=== PATIENT | male | born 1945 | race Hispanic/Latino ===

== ENCOUNTER 2017-06-10 07:12 | Day surgery (SDC) | payer OTHER ==
[~2017-06-10] VITALS: Ht 175.3 cm; Wt 114.2 kg
[~2017-06-10 07:12] MED LIST: ALLO300T2 PO; ASPI-1181 PO; ATOR20TA65 PO; LISI40TA4 PO; METF500T7 PO; METO-391 PO; SODIUM CHLORIDE 0.9% 1000ML 1,000 ML IV ONE; XALA2.5OS OU
[2017-06-10 07:25] VITALS: BP 138/64
[2017-06-10] MEDS ORDERED: PROPOFOL 10 MG/ML 20ML VIAL IV ONE (09:09)
[2017-06-10 09:29] VITALS: BP 89/54
== END 2017-06-10 10:00 | disposition home or self-care (01) ==
LOC: DAH 07:12
PROVIDERS: ATTEND Internal Medicine Gastroenterology
DX: Z12.11 Encounter for screening for malignant neoplasm of colon (principal); K57.30 Diverticulosis of large intestine without perforation or abscess without bleeding; Z86.010 Personal history of colon polyps; Z68.35 Body mass index [BMI] 35.0-35.9, adult; I10 Essential (primary) hypertension; E78.5 Hyperlipidemia, unspecified; G47.33 Obstructive sleep apnea (adult) (pediatric); M19.90 Unspecified osteoarthritis, unspecified site; E11.39 Type 2 diabetes mellitus with other diabetic ophthalmic complication; H40.9 Unspecified glaucoma; Z98.890 Other specified postprocedural states; Z79.899 Other long term (current) drug therapy; Z79.84 Long term (current) use of oral hypoglycemic drugs
CPT/HCPCS: 82948 ×2; 93005; G0105; J2704; J7030

== ENCOUNTER 2018-11-02 09:58 | Inpatient (IN) | payer OTHER | END 2018-11-04 18:17 | LOC: EDHIP 09:58 → 4AH 18:51 ==

== ENCOUNTER 2020-01-17 12:00 | Inpatient (IN) | payer OTHER ==
[~2020-01-17] VITALS: Ht 175.3 cm; Wt 117.4 kg
[2020-01-17 10:13] LABS: BASOPHILS % (AUTO) 0.5 % (0.0-5.0); EOSINOPHILS % (AUTO) 0.8 % (0.0-8.0); HEMATOCRIT 39.2 % (42-54); LYMPHOCYTES % (AUTO) 20.5 % (21.0-51.0); MEAN CORPUSCULAR HGB CONC 33.4 g/dL (32.0-36.0); MEAN CORPUSCULAR VOLUME 95.8 fL (79-99); MONOCYTES % (AUTO) 7.8 % (3.0-13.0); NEUTROPHILS % (AUTO) 69.5 % (40.0-77.0); PLATELET COUNT (AUTO) 244 K/uL (130-400); RED BLOOD CELL COUNT(AUTO) 4.09 MIL/uL (4.50-6.20); RED CELL DISTRIBUTION WIDTH 12.6 % (11.0-15.5)
[2020-01-17 10:26] LABS: BILIRUBIN,URINE Negative (NEGATIVE); COLOR,URINE Yellow (YELLOW); GLUCOSE, URINE (UA) Negative (NEGATIVE); KETONES,URINE Negative (NEGATIVE); LEUKOCYTE ESTERASE ,URINE Negative (NEGATIVE); NITRATE,URINE Negative (NEGATIVE); OCCULT BLOOD,URINE Negative (NEGATIVE); PROTEIN,URINE Negative (NEGATIVE); UROBILINOGEN,URINE 0.2 mg/dL (0.2-1.0)
[2020-01-17 10:30] LABS: APPEARANCE,URINE CLEAR (CLEAR)
[2020-01-17 10:33] LABS: POTASSIUM 4.9 mmol/L (3.5-5.1)
[2020-01-17 10:43] LABS: INR 0.94 (0.85-1.15); PROTHROMBIN TIME 10.2 SEC (9.6-11.6)
[~2020-01-17 12:00] MED LIST changes: +AMLO-257 PO; -ASPI-1181 PO; +ASPI-1443 PO; -LISI40TA4 PO; -METF500T7 PO; -METO-391 PO; -SODIUM CHLORIDE 0.9% 1000ML 1,000 ML IV ONE
[2020-01-23 13:01] VITALS: BP 150/80
[2020-01-23] MEDS ORDERED: ICOS0.5C PO (13:47)
[2020-01-23] MEDS ORDERED: VITAMIN D PO (13:47)
[2020-01-23] MEDS ORDERED: TELM80TA10 PO (13:47)
[2020-01-23] MEDS ORDERED: METF-444 PO (13:47)
[2020-01-23] MEDS ORDERED: GABA-529 PO (13:47)
[2020-01-23] MEDS ORDERED: VIT1CAPS5 PO (13:47)
[2020-01-23] MEDS ORDERED: CLON0.1T PO (13:51)
[2020-01-23] MEDS ORDERED: TURMERIC PO (13:51)
[2020-01-23] MEDS ORDERED: ZINC50TA64 PO (13:51)
[2020-01-23] MEDS ORDERED: UBID100C10 PO (13:51)
[2020-01-23] MEDS ORDERED: CIDE600C PO (13:51)
[2020-01-24] VITALS (25 sets, daily range): BP systolic 126–159; BP diastolic 65–85
[2020-01-24] MEDS: CEFAZOLIN SODIUM 1 GM VIAL IVP SCH ×2 (06:00→09:45)
[2020-01-24] MEDS ORDERED: SODIUM CHLORIDE 0.9% 1000ML 1,000 ML IV ONE (06:29)
--- NOTE | 2020-01-24 06:30 | NUR ---
preop pt arrived ambulatory in no distress for left knee surgery. pt oriented to room and call light. will continue to monitor pt
--- NOTE | 2020-01-24 07:10 | NUR ---
report dr curran informed pt on turmeric and c0 q10 no new orders given
[2020-01-24] MEDS ORDERED: ROCURONIUM 10MG/1ML SYR 10 MG/ML ML ONE (07:36)
[2020-01-24] MEDS ORDERED: KETAMINE 50MG/ML SYRINGE 50 MG/ML DISP.SYRIN IV ONE (07:36)
[2020-01-24] MEDS ORDERED: MIDAZOLAM HCL 1 MG/ML 2ML VIAL ONE (07:36)
[2020-01-24] MEDS ORDERED: SUCCINYLCHOLINE CHLORIDE 20 MG/ML 10 ML VIAL ONE (07:36)
[2020-01-24] MEDS ORDERED: PROPOFOL 10 MG/ML 20ML VIAL IV ONE (07:37)
[2020-01-24] MEDS ORDERED: LIDOCAINE PF 2% 5ML ABBOJECT ONE (07:37)
[2020-01-24] MEDS ORDERED: CEFAZOLIN SODIUM 1 GM VIAL ONE (07:42)
[2020-01-24] MEDS ORDERED: KETOROLAC TROMETHAMINE 30MG/ML ONE (08:19)
[2020-01-24] MEDS ORDERED: ACETAMINOPHEN EXTRA STRENGTH 500 MG TABLET ONE (08:19)
[2020-01-24] MEDS ORDERED: CELECOXIB 200 MG CAP ONE (08:20)
[2020-01-24] MEDS ORDERED: TRANEXAMIC ACID 1000MG/10ML ONE ×2 (08:26→12:12)
[2020-01-24] MEDS ORDERED: GLYCOPYRROLATE 1 MG/5 ML SYRINGE ONE (09:17)
[2020-01-24] MEDS ORDERED: DEXAMETHASONE SOD PHOSPHATE 10MG/ML 1ML VIAL ONE (09:21)
[2020-01-24] MEDS ORDERED: FENTANYL CITRATE PF 50 MCG/1 ML 2ML VIAL ONE (10:13)
[2020-01-24] MEDS ORDERED: CEFAZOLIN SODIUM 1 GM VIAL IRRIG ONE (10:20)
[2020-01-24] MEDS ORDERED: NEOSTIGMINE 5MG/5ML SYR IV ONE (11:27)
[2020-01-24] MEDS ORDERED: ONDANSETRON HCL 4 MG/2 ML VIAL ONE (11:28)
[2020-01-24] MEDS ORDERED: TRAMADOL HCL 50 MG TABLET PO PRN (11:45)
[2020-01-24] MEDS: ACETAMINOPHEN EXTRA STRENGTH 500 MG TABLET PO SCH ×2 (11:45→20:18)
[2020-01-24] MEDS ORDERED: ONDANSETRON HCL 4 MG/2 ML VIAL IVP PRN (11:45)
[2020-01-24] MEDS ORDERED: FERROUS FUMARATE 324 MG TABLET PO PRN (11:45)
[2020-01-24] MEDS ORDERED: KETOROLAC TROMETHAMINE 15MG/ML IV PRN (11:45)
[2020-01-24] MEDS: SODIUM CHLORIDE 0.9% 1000ML 1,000 ML IV SCH ×2 (11:45→21:45)
[2020-01-24] MEDS ORDERED: DiphenhydrAMINE HCL 50 MG/ML VIAL IVP PRN (11:45)
[2020-01-24] MEDS ORDERED: LIDOCAINE HCL-MPF 1% 2ML VIAL IV PRN (11:45)
[2020-01-24] MEDS ORDERED: POTASSIUM CHLORIDE 20MEQ/100ML 100 ML IV PRN (11:45)
[2020-01-24] MEDS ORDERED: TEMAZEPAM 15 MG CAPSULE PO PRN (11:45)
[2020-01-24] MEDS ORDERED: POTASSIUM CHLORIDE 10% ELIXIR 20 MEQ/15 ML UDCUP PO PRN (11:45)
[2020-01-24] MEDS ORDERED: POTASSIUM CHLORIDE 20 MEQ ERTAB PO PRN (11:45)
[2020-01-24] MEDS ORDERED: CALCIUM CARBONATE 500 MG TABLET PO PRN (11:45)
[2020-01-24] MEDS ORDERED: MEPERIDINE-PF 25 MG/ML SYG ONE ×2 (12:18→12:38)
[2020-01-24] MEDS: OXYCODONE HCL 5 MG TAB PO PRN ×2 (14:43→20:16)
[2020-01-24] MEDS: INSULIN HUMULIN R 100 UNIT/ML 3ML SQ SCH ×2 (16:30→21:00)
[2020-01-24] MEDS ORDERED: BENZOCAINE/MENTH/CETYLPYRD CL 1 EACH LOZENGE MM PRN (17:00)
[2020-01-24] MEDS: METFORMIN HCL 500 MG TABLET PO SCH (17:02)
[2020-01-24] MEDS: CEFAZOLIN 3GM /D5W 100ML 100 ML IV SCH (18:06)
[2020-01-24] MEDS: GABAPENTIN 100 MG CAPSULE PO SCH (20:16)
[2020-01-24] MEDS: CLONIDINE HCL 0.1 MG TABLET PO SCH (20:17)
[2020-01-24] MEDS: CELECOXIB 200 MG CAP PO SCH (20:17)
[2020-01-24] MEDS: LATANOPROST 2.5 ML DROPS OU SCH (20:18)
[2020-01-24] MEDS: FAMOTIDINE 20MG TAB 20 MG TAB PO SCH (20:18)
[2020-01-24] MEDS: ATORVASTATIN CALCIUM 20 MG TABLET PO SCH (20:18)
[2020-01-24] MEDS: FISH OIL 1000 MG/CAP PO SCH (20:18)
[2020-01-24] MEDS ORDERED: ASPIRIN 81MG TAB.CHEW PO SCH (21:00)
[2020-01-24] MEDS ORDERED: COMPOUND PO MISCELLANEOUS 1 EACH MISC MISC PRN (22:00)
[2020-01-24] MEDS ORDERED: LIDO 2% VISC 30ML+MAG/AL/SIMETH 30ML+DICYCLOMINE 20MG 10ML PO PRN ×3 (22:00)
[2020-01-25] VITALS (7 sets, daily range): BP systolic 91–140; BP diastolic 55–75
[2020-01-25] MEDS: CEFAZOLIN 3GM /D5W 100ML 100 ML IV SCH (01:27)
[2020-01-25 03:40] LABS: HEMATOCRIT 32.6 % (42-54); MEAN CORPUSCULAR HGB CONC 33.7 g/dL (32.0-36.0); MEAN CORPUSCULAR VOLUME 94.8 fL (79-99); RED BLOOD CELL COUNT(AUTO) 3.44 MIL/uL (4.50-6.20); RED CELL DISTRIBUTION WIDTH 12.3 % (11.0-15.5)
[2020-01-25] MEDS: ACETAMINOPHEN EXTRA STRENGTH 500 MG TABLET PO SCH ×3 (03:45→19:26)
[2020-01-25 03:59] LABS: CREATININE 1.1 mg/dL (0.5-1.5); POTASSIUM 4.1 mmol/L (3.5-5.1)
[2020-01-25] MEDS: INSULIN HUMULIN R 100 UNIT/ML 3ML SQ SCH ×4 (07:30→20:30)
[2020-01-25] MEDS: SODIUM CHLORIDE 0.9% 1000ML 1,000 ML IV SCH (07:45)
[2020-01-25] MEDS: ASPIRIN 81 MG EC TAB PO SCH (08:32)
[2020-01-25] MEDS: GABAPENTIN 100 MG CAPSULE PO SCH ×2 (08:32→19:27)
[2020-01-25] MEDS: OXYCODONE HCL 5 MG TAB PO PRN ×4 (08:32→19:42)
[2020-01-25] MEDS: CELECOXIB 200 MG CAP PO SCH ×2 (08:32→19:28)
[2020-01-25] MEDS: Vitamin B Complex/Vit C/Folic Acid PO SCH (08:33)
[2020-01-25] MEDS: TAMSULOSIN HCL 0.4 MG CAP.ER.24H PO SCH (08:33)
[2020-01-25] MEDS: FISH OIL 1000 MG/CAP PO SCH ×2 (08:33→19:25)
[2020-01-25] MEDS: METFORMIN HCL 500 MG TABLET PO SCH ×2 (08:33→16:54)
[2020-01-25] MEDS: AMLODIPINE BESYLATE 5 MG TAB PO SCH (08:33)
[2020-01-25] MEDS: ALLOPURINOL 300 MG TABLET PO SCH (08:33)
[2020-01-25] MEDS: LOSARTAN 100 MG TABLET PO SCH (08:34)
[2020-01-25] MEDS: POLYETHYLENE GLYCOL 3350 17 GM POWD.PACK PO SCH (08:36)
[2020-01-25] MEDS: VITAMIN D PO SCH (08:37)
[2020-01-25] MEDS ORDERED: VITAMIN D PO SCH (09:00)
[2020-01-25] MEDS: FAMOTIDINE 20MG TAB 20 MG TAB PO SCH ×2 (11:45→19:26)
--- NOTE | 2020-01-25 15:07 | NUR ---
CM NOTE/IA/ DCP HH MET WITH PATIENT AND DAUGHTER IN ROOM. PER PATIENT, LIVES WITH SPOUSE, IS INDEPENDENT WITH ADLS, HAS STANDARD WALKER, ROLLATOR WALKER, BSC AND SHOWER CHAIR, NO PROVIDER OR HOME HEALTH SERVICES, AND FEELS SAFE TO DISCHARGE HOME IF OK WITH MD. PATIENT AND DAUGHTER MADE AWARE OF REFERRAL TO HOME HEALTH FOR PHYSICAL THERAPY AND NURSING CARE. [facility] COMPLETED FOR ANY HH IN NETWORK WITH [employer] MEDICARE INSURANCE. PER PATIENT, LAST TIME HE WAS RELEASED FROM HOSPITAL TO [facility], INSURANCE PROVIDED TRANSPORTATION AND WOULD LIKE FOR TRANSPORTATION TO BE SET UP AGAIN BUT NOT EMS. PER DAUGHTER, "ONLY HAVE BIG SUV THAT YOU HAVE TO ALMOST CLIMB". THIS CM TO CALL INSURANCE AND SEE IF TRANSPORTATION SERVICES CAN BE SET UP FOR DISCHARGE FROM HOSPITAL. ALSO, PRIMARY NURSE, VALENCIA HOWELL, MADE AWARE OF TRANSPORTATION ISSUE AND ADVICED FOR NURSE TO CALL PT AND INFORM OF THIS ISSUE SO THAT THE PATIENT CAN PRACTICE STAIR TRAINING. Addendum: 01/25/20 at 1512 by DEV DUMONT RN CM Amended: Links added.
--- NOTE | 2020-01-25 15:25 | NUR ---
CM NOTE/APC PER MY CM RECORDS, CYNDI IN NETWORK WITH [facility]. [facility] CALLED, ADMISSION INTAKE ON ANOTHER LINE BUT OK TO SEND REFERRAL TO VERIFY IF IN NETWORK. CLINICAL REFERRAL FAXED TO [facility], I WILL FOLLOW UP WITH EZEQUIEL FROM [facility] TO MAKE SURE HH IN NETWORK.
[2020-01-25] MEDS: ATORVASTATIN CALCIUM 20 MG TABLET PO SCH (19:25)
[2020-01-25] MEDS: CLONIDINE HCL 0.1 MG TABLET PO SCH (19:32)
[2020-01-25] MEDS: LATANOPROST 2.5 ML DROPS OU SCH (19:36)
[2020-01-25] MEDS ORDERED: HYDROMORPHONE HCL 2 MG/ML VIAL ONE (20:34)
[2020-01-25] MEDS: HYDROMORPHONE 1 MG/1 ML AMP IVP PRN ×2 (21:53→23:08)
[2020-01-26] MEDS: OXYCODONE HCL 5 MG TAB PO PRN ×4 (00:12→10:53)
[2020-01-26] MEDS: HYDROMORPHONE 1 MG/1 ML AMP IVP PRN ×5 (00:55→05:31)
[2020-01-26] MEDS: ACETAMINOPHEN EXTRA STRENGTH 500 MG TABLET PO SCH ×2 (03:43→12:29)
[2020-01-26 03:59] VITALS: BP 102/50
[2020-01-26] MEDS: INSULIN HUMULIN R 100 UNIT/ML 3ML SQ SCH ×2 (05:24→11:30)
[2020-01-26 08:00] VITALS: BP 130/77
[2020-01-26] MEDS: ALLOPURINOL 300 MG TABLET PO SCH (08:18)
[2020-01-26] MEDS: METFORMIN HCL 500 MG TABLET PO SCH (08:18)
[2020-01-26] MEDS: POLYETHYLENE GLYCOL 3350 17 GM POWD.PACK PO SCH (08:19)
[2020-01-26] MEDS: GABAPENTIN 100 MG CAPSULE PO SCH (08:19)
[2020-01-26] MEDS: ASPIRIN 81 MG EC TAB PO SCH (08:20)
[2020-01-26] MEDS: AMLODIPINE BESYLATE 5 MG TAB PO SCH (08:20)
[2020-01-26] MEDS: FAMOTIDINE 20MG TAB 20 MG TAB PO SCH (08:20)
[2020-01-26] MEDS: Vitamin B Complex/Vit C/Folic Acid PO SCH (08:20)
[2020-01-26] MEDS: TAMSULOSIN HCL 0.4 MG CAP.ER.24H PO SCH (08:20)
[2020-01-26] MEDS: FISH OIL 1000 MG/CAP PO SCH (08:21)
[2020-01-26] MEDS: LOSARTAN 100 MG TABLET PO SCH (08:21)
[2020-01-26] MEDS: CELECOXIB 200 MG CAP PO SCH (08:21)
[2020-01-26] MEDS: VITAMIN D PO SCH (08:22)
[2020-01-26 11:00] VITALS: BP 136/70
--- NOTE | 2020-01-26 12:45 | NUR ---
DC PLAN PATIENT ACCEPTED WITH [facility] CONFIRMED. PER NOTE PATIENT WANTS [employer] TRANSPORT. CALLED [employer] INSURANCE REGARDING TRANSPORT. NO ANSWER LEFT MESSAGE. MISAEL WILL CONTINUE TO FOLLOW. Addendum: 01/26/20 at 1248 by NIGHAT PEREZ RN CM Amended: Links added.
[2020-01-26] MEDS ORDERED: ASPI-1443 PO (13:34)
[2020-01-26] MEDS ORDERED: HYDR-4457 PO (13:34)
[2020-01-26] MEDS ORDERED: MAGNESIUM CITRATE 296 ML SOLUTION PO SCH (13:45)
--- NOTE | 2020-01-26 15:10 | NUR ---
DISCHARGE PATIENT GIVEN DISCHARGE INSTRUCTION AND EDUCATION ON FOLLOW UP APPOINTMENTS, NEW RX([facility], [facility]), PHYSICAL THERAPY, S/S TO REPORT, JORGE LUIS DRESSING SEAL INTACT, NEGATIVE PRESSURE ACTIVE. JORGE LUIS DRESSING TO BE D/C ON 01/21/20. IV DISCONTINUED, CATHETER INTACT. NO DISTRESS NOTED UPON DISCHARGE PAIN LEVEL AT D/C 0/10. ALL BELONGINGS TAKEN WITH. REPORT G[facility] TO [facility] REGARDING FOLLOW UP APPOINTMENTS, NEW RX([facility], [facility]), PHYSICAL THERAPY, S/S TO REPORT, JORGE LUIS DRESSING SEAL INTACT, NEGATIVE PRESSURE ACTIVE. JORGE LUIS DRESSING TO BE D/C ON 01/21/20. NO CONCERNS VOICED.
--- NOTE | 2020-01-26 15:52 | NUR ---
DC PLAN VISITED WITH PATIENT AND SPOUSE. PATIENT HAD MENTIONED [employer] TRANSPORT AVAILABLE. CALLED [employer] LEFT MESSAGES FOR CALL BACK. NO CALL BACK. LET PATIENT KNOW. NO CALL YET. ASKED IF THEY HAD GIVEN THEM A PHONE NUMBER TO CALL. SAID NO IT WAS JUST MENTIONED. VERBALIZED UNDERSTANDING. SAID WILL BE OKAY WILL FIND A WAY HOME. LET THEM KNOW ACCEPTED TO [facility]. CONFIRMED PHONE NUMBERS FOR COMPANY TO CALL. Addendum: 01/26/20 at 1557 by NIGHAT PEREZ RN CM Amended: Links added.
[2020-01-27] MEDS ORDERED: BISACODYL 10 MG SUPP.RECT RC PRN (11:45)
== END 2020-01-26 15:55 | disposition home health service (06) | DRG 470 ==
LOC: DAHIP 01-24 05:41 → EDSTATUS 01-24 12:00 → 3BH 01-24 12:27
PROVIDERS: ADMIT Orthopaedic Surgery; ATTEND Orthopaedic Surgery
PROC: 3E0T3BZ Introduction of Anesthetic Agent into Peripheral Nerves and Plexi, Percutaneous Approach (ICD-10-PCS; 2020-01-24)
PROC: 0SRD0J9 Replacement of Left Knee Joint with Synthetic Substitute, Cemented, Open Approach (ICD-10-PCS; principal; 2020-01-24 09:10)
PROC: 5A09357 Assistance with Respiratory Ventilation, Less than 24 Consecutive Hours, Continuous Positive Airway Pressure (ICD-10-PCS; 2020-01-25)
PROC: 5A09357 Assistance with Respiratory Ventilation, Less than 24 Consecutive Hours, Continuous Positive Airway Pressure (ICD-10-PCS; 2020-01-26)
DX: M17.12 Unilateral primary osteoarthritis, left knee (principal); E11.36 Type 2 diabetes mellitus with diabetic cataract; H40.9 Unspecified glaucoma; I25.10 Atherosclerotic heart disease of native coronary artery without angina pectoris; I49.5 Sick sinus syndrome; K21.9 Gastro-esophageal reflux disease without esophagitis; K57.90 Diverticulosis of intestine, part unspecified, without perforation or abscess without bleeding; L40.9 Psoriasis, unspecified; M10.9 Gout, unspecified; Z96.651 Presence of right artificial knee joint; G47.33 Obstructive sleep apnea (adult) (pediatric); E66.9 Obesity, unspecified; G89.29 Other chronic pain; I10 Essential (primary) hypertension; Z20.828 Contact with and (suspected) exposure to other viral communicable diseases; Z68.38 Body mass index [BMI] 38.0-38.9, adult; Z86.010 Personal history of colon polyps; Z85.89 Personal history of malignant neoplasm of other organs and systems; D64.9 Anemia, unspecified
CPT/HCPCS: 36415; 80048; 81003; 82948; 85025; 85027; 85610; 87641; 97039; G0378; J0330; J0690; J1100; J1170; J1885; J2001; J2175; J2250; J2405; J2704; J2710; J3010; J3490; J7030; U0003

== ENCOUNTER 2020-05-13 06:12 | Day surgery (SDC) | payer MEDICARE, OTHER ==
[2020-05-10 10:12] LABS: BASOPHILS % (AUTO) 0.6 % (0.0-5.0); EOSINOPHILS % (AUTO) 1.2 % (0.0-8.0); HEMATOCRIT 39.3 % (42-54); MEAN CORPUSCULAR HEMOGLOBIN 31.1 pg (27.0-33.0); MEAN CORPUSCULAR HGB CONC 32.6 g/dL (32.0-36.0); MEAN CORPUSCULAR VOLUME 95.6 fL (79-99); MONOCYTES % (AUTO) 6.3 % (3.0-13.0); NEUTROPHILS % (AUTO) 72.3 % (40.0-77.0); PLATELET COUNT (AUTO) 283 K/uL (130-400); RED BLOOD CELL COUNT(AUTO) 4.11 MIL/uL (4.50-6.20); RED CELL DISTRIBUTION WIDTH 13.8 % (11.0-15.5); WHITE BLOOD COUNT (AUTO) 8.1 K/uL (4.8-10.8)
[2020-05-10 10:19] LABS: CREATININE 0.9 mg/dL (0.5-1.5)
[2020-05-10 10:29] VITALS: BP 151/80
[2020-05-13] VITALS (18 sets, daily range): BP systolic 120–135; BP diastolic 60–72
[~2020-05-13] VITALS: Ht 175.3 cm; Wt 117.4 kg
[~2020-05-13 06:12] MED LIST changes: +CIDE600C PO; +CLON0.1T PO; +METF-444 PO; +OMEG-116 PO; +TELM80TA10 PO; +TURMERIC PO; +UBID100C10 PO; +VIT1CAPS5 PO; +VITAMIN D PO; -XALA2.5OS OU; +ZINC50TA64 PO
[2020-05-13] MEDS ORDERED: SODIUM CHLORIDE 0.9% 1000ML 1,000 ML IV ONE (06:44)
[2020-05-13] MEDS ORDERED: ROCURONIUM 10MG/1ML SYR 10 MG/ML ML ONE (07:25)
[2020-05-13] MEDS ORDERED: PROPOFOL 10 MG/ML 20ML VIAL IV ONE (07:25)
[2020-05-13] MEDS ORDERED: SUCCINYLCHOLINE CHLORIDE 20 MG/ML 10 ML VIAL ONE (07:25)
[2020-05-13] MEDS ORDERED: LIDOCAINE PF 2% 5ML ABBOJECT ONE (07:25)
[2020-05-13] MEDS: CEFAZOLIN SODIUM 1 GM VIAL ONE ×2 (07:30→08:40)
[2020-05-13] MEDS ORDERED: NEOSTIGMINE 5MG/5ML SYR IV ONE (08:35)
[2020-05-13] MEDS ORDERED: GLYCOPYRROLATE 1 MG/5 ML SYRINGE ONE (08:35)
[2020-05-13] MEDS ORDERED: ONDANSETRON HCL 4 MG/2 ML VIAL ONE (08:36)
[2020-05-13] MEDS ORDERED: EPHEDRINE SULFATE 50 MG/ML AMPULE ONE (08:42)
[2020-05-13] MEDS ORDERED: FENTANYL CITRATE PF 50 MCG/1 ML 2ML VIAL ONE (08:54)
[2020-05-13] MEDS ORDERED: ACET1TAB25 PO (09:35)
[2020-05-13] MEDS ORDERED: CEPH500B PO (09:35)
== END 2020-05-13 11:30 | disposition home or self-care (01) ==
LOC: DAH 06:12
PROVIDERS: ATTEND Orthopaedic Surgery
DX: M23.41 Loose body in knee, right knee (principal); Z20.822 Contact with and (suspected) exposure to COVID-19; M25.561 Pain in right knee; T84.012A Broken internal right knee prosthesis, initial encounter; I25.2 Old myocardial infarction; I45.10 Unspecified right bundle-branch block; I10 Essential (primary) hypertension; E78.5 Hyperlipidemia, unspecified; K21.9 Gastro-esophageal reflux disease without esophagitis; E11.42 Type 2 diabetes mellitus with diabetic polyneuropathy; E11.39 Type 2 diabetes mellitus with other diabetic ophthalmic complication; H42 Glaucoma in diseases classified elsewhere; E78.2 Mixed hyperlipidemia; G47.33 Obstructive sleep apnea (adult) (pediatric); E66.9 Obesity, unspecified; M19.90 Unspecified osteoarthritis, unspecified site; M10.9 Gout, unspecified; I49.5 Sick sinus syndrome; Z79.899 Other long term (current) drug therapy; Z98.890 Other specified postprocedural states; Z87.440 Personal history of urinary (tract) infections; Z85.828 Personal history of other malignant neoplasm of skin; Z86.010 Personal history of colon polyps; Z87.891 Personal history of nicotine dependence; Z72.89 Other problems related to lifestyle; Y83.8 Other surgical procedures as the cause of abnormal reaction of the patient, or of later complication, without mention of misadventure at the time of the procedure
CPT/HCPCS: 29874; 36415; 73560; 80048; 82948 ×2; 85025; 93005; A4215; A4221; A4222; A4223 ×2; A4606; A4649; A4663; A4930; A6223; C9803; J0330; J0690; J2001; J2405; J2704; J2710; J3010; J3490 ×2; J7030 ×2; U0003

== ENCOUNTER 2022-04-28 20:20 | Emergency (ER) | payer MEDICARE ==
[~2022-04-28] VITALS: Ht 177.8 cm; Wt 104.3 kg
[~2022-04-28 20:20] MED LIST changes: +ACET-2079 PO; +CEPH500B PO
[2022-04-28] MEDS ORDERED: LACTATED RINGERS 1000ML 1,000 ML IV ONE (21:00)
[2022-04-28 21:11] LABS: BASOPHILS % (AUTO) 0.4 % (0.0-5.0); EOSINOPHILS % (AUTO) 0.8 % (0.0-8.0); HEMATOCRIT 39.5 % (42-54); LYMPHOCYTES % (AUTO) 14.8 % (21.0-51.0); MEAN CORPUSCULAR HEMOGLOBIN 32.8 pg (27.0-33.0); MEAN CORPUSCULAR HGB CONC 34.2 g/dL (32.0-36.0); MEAN CORPUSCULAR VOLUME 96.1 fL (79-99); MONOCYTES % (AUTO) 5.5 % (3.0-13.0); NEUTROPHILS % (AUTO) 77.6 % (40.0-77.0); PLATELET COUNT (AUTO) 216 K/uL (130-400); RED BLOOD CELL COUNT(AUTO) 4.11 MIL/uL (4.50-6.20); RED CELL DISTRIBUTION WIDTH 12.7 % (11.0-15.5); WHITE BLOOD COUNT (AUTO) 9.1 K/uL (4.8-10.8)
[2022-04-28 21:12] LABS: APPEARANCE,URINE CLEAR (CLEAR); BILIRUBIN,URINE NEGATIVE (NEGATIVE); COLOR,URINE LIGHT-YELLOW (YELLOW); GLUCOSE, URINE (UA) NEGATIVE (NEGATIVE); KETONES,URINE NEGATIVE (NEGATIVE); LEUKOCYTE ESTERASE ,URINE 75 Leu/uL (NEGATIVE); NITRATE,URINE NEGATIVE (NEGATIVE); OCCULT BLOOD,URINE NEGATIVE (NEGATIVE); PH,URINE 5.5 (5.0-8.0); PROTEIN,URINE NEGATIVE (NEGATIVE); UROBILINOGEN,URINE 0.2 mg/dL (0.2-1.0)
[2022-04-28 21:16] LABS: MUCUS,URINE RARE LPF (None Seen); RBC,URINE 0-1 /HPF (0-1); SQUAMOUS EPITHELIAL CELL,UR RARE /HPF (0-2)
[2022-04-28 21:22] LABS: CREATININE 1.1 mg/dL (0.5-1.5); POTASSIUM 4.6 mmol/L (3.5-5.1)
[2022-04-28 21:23] LABS: INR 0.94 (0.85-1.15); PROTHROMBIN TIME 10.3 SEC (9.6-11.6)
[2022-04-28 21:25] LABS: PARTIAL THROMBOPLASTIN TIME 25.8 SEC (26.3-35.5)
[2022-04-28 21:26] LABS: ALBUMIN 3.8 g/dL (3.5-5.0)
[2022-04-28 21:31] LABS: B-TYPE NATRIURETIC PEPTIDE 11 pg/mL (0-100)
[2022-04-28] MEDS ORDERED: INSULIN GLARGINE 100 UNITS/ML 10 ML VIAL SQ SCH (22:00)
[2022-04-28] MEDS ORDERED: CIPR-279 PO (22:30)
[2022-04-28 22:46] VITALS: BP 148/78
== END 2022-04-28 23:12 | disposition home or self-care (01) ==
LOC: EDH 20:20
DX: N39.0 Urinary tract infection, site not specified (principal); F03.90 Unspecified dementia, unspecified severity, without behavioral disturbance, psychotic disturbance, mood disturbance, and anxiety; I10 Essential (primary) hypertension; E11.9 Type 2 diabetes mellitus without complications; E78.00 Pure hypercholesterolemia, unspecified; Z79.899 Other long term (current) drug therapy; Z79.82 Long term (current) use of aspirin; Z79.84 Long term (current) use of oral hypoglycemic drugs
CPT/HCPCS: 99285; 96360; 70450; 71045; 96361; 82550; 83735; 84484; 80053; 83880; 82140; 85025; 85610; 85730; 87088; 81001; 36415; 93005; J7120